=== PATIENT | male | born 1990 | race Two or more races ===

== ENCOUNTER 2018-06-01 13:08 | Emergency (ER) | payer SELFPAY ==
[2018-06-01] MEDS ORDERED: ONDANSETRON HCL INJ/PF 4 MG/2 ML SDV IV ONE (13:25)
[2018-06-01] MEDS ORDERED: NORMAL SALINE 1000 ML 1,000 ML IV ONE (13:25)
--- NOTE | 2018-06-01 14:04 | ER Document Report ---
ED General - General Chief Complaint: Nausea Stated Complaint: FLU SYMPTOMS Time Seen by Provider: 06/01/18 13:23 - HPI Notes: Patient is a 27-year-old male that presents to the emergency department for chief complaint of sinus congestion, cough, vomiting. Patient reports 6 days of sinus pressure and congestion. He states he is having a lot of postnasal drip and coughing. He has had a few episodes of posttussive emesis yesterday and today. Today he started to feel like he was swaying while sitting still. He denies history of vertigo in the past. He has tried taking [place] with no relief of his symptoms. He denies any fevers or chills. He has not received an influenza vaccine. He denies any abdominal pain, shortness of breath, chest pain, and diarrhea. Past Medical History: Negative Past Surgical History: Negative Social History: Daily tobacco. Occasional marijuana. Occasional alcohol. Family History: Reviewed and noncontributory for presenting illness Allergies: Reviewed, see documented allergy list. REVIEW OF SYSTEMS: CONSTITUTIONAL : No fever No chills No diaphoresis No recent illness EENT: No vision changes congestion No sore throat CARDIOVASCULAR: No chest pain No palpitations RESPIRATORY: No shortness of breath cough No difficulty breathing GASTROINTESTINAL: No abdominal pain No nausea vomiting No diarrhea GENITOURINARY: No dysuria No hematuria No difficulty urinating MUSCULOSKELETAL: No back pain No leg pain No arm pain SKIN: No rashes No lesions LYMPHATIC: No swollen, enlarged glands. NEUROLOGICAL: Vertigo No lightheadedness No headache No weakness No paresthesias PSYCHIATRIC: No anxiety No depression PHYSICAL EXAMINATION: Vital signs reviewed, nursing noted reviewed. GENERAL: Well-appearing, well-nourished and in no acute distress. HEAD: Atraumatic, normocephalic. EYES: Eyes appear normal, extraocular movements intact, sclera anicteric, conjunctiva are normal. ENT: Bilateral nasal mucosal edema and rhinorrhea, bilateral maxillary and frontal sinus tenderness to percussion. Bilateral middle ear effusion. Oropharynx clear without exudates. Moist mucous membranes. NECK: Normal range of motion, supple without lymphadenopathy LUNGS: Breath sounds clear to auscultation bilaterally and equal. No wheezes rales or rhonchi. HEART: Regular rate and rhythm without murmurs ABDOMEN: Soft, nontender, normoactive bowel sounds. No rebound, guarding, or rigidity. No masses appreciated. EXTREMITIES: Nontender, good range of motion, no pitting or edema. NEUROLOGICAL: No focal neurological deficits. Moves all extremities spontaneously Motor and sensory grossly intact on exam. PSYCH: Normal mood, normal affect. SKIN: Warm, Dry, normal turgor, no rashes or lesions noted on exposed skin - Related Data Allergies/Adverse Reactions: No Known Allergies Allergy (Unverified 06/01/18 13:09) Past Medical History - Social History Smoking Status: Current Every Day Smoker Family History: Reviewed & Not Pertinent Review of Systems - Review of Systems Notes: Dictated Physical Exam - Vital signs Vitals: Temp Pulse Resp BP Pulse Ox 98.0 F 58 L 14 128/77 H 98 06/01/18 13:15 06/01/18 13:15 06/01/18 13:15 06/01/18 13:15 06/01/18 13:15 - Notes Notes: Dictated Course - Re-evaluation Re-evalutation: 06/01/18 14:01 Vitals reviewed. Nursing notes reviewed. Patient afebrile and nontoxic- appearing. He denies feeling nauseated currently and states he only has vomited after coughing, intra-abdominal process not currently suspected. He was given meclizine for his vertigo sensation. Patient has had 6 days of significant sinus congestion which is now causing him to be vertiginous. He was counseled on smoking cessation. He will be given an antibiotic for his sinusitis. He will be given a prescription for meclizine for his vertigo. He will be discharged home in stable condition with primary care follow-up. Patient in agreement with this plan and stable at discharge. - Vital Signs Vital signs: Temp Pulse Resp BP Pulse Ox 98.0 F 58 L 14 128/77 H 98 06/01/18 13:15 06/01/18 13:15 06/01/18 13:15 06/01/18 13:15 06/01/18 13:15 Discharge - Discharge Clinical Impression: Vertigo Sinusitis Qualifiers: Sinusitis location: other Chronicity: acute Recurrence: not specified as recurrent Qualified Code(s): J01.80 - Other acute sinusitis Condition: Stable Disposition: HOME, SELF-CARE Instructions: Sinusitis ([facility]), Vertigo ([facility]), Family Physicians / Practices Additional Instructions: Please return to the emergency department if you have any worsening, or concern of your symptoms. Please return to the emergency department if you develop chest pain, difficulty breathing, severe abdominal pain, or ongoing vomiting. Please follow-up with your primary care physician in 2-3 days and any other recommended physicians. If prescribed, take all medications as directed. If you have any questions or concerns do not hesitate to return the emergency department for evaluation. [] Prescriptions: Amox Tr/Potassium Clavulanate [Augmentin 875-125 Tablet] 1 tab PO BID 10 Days tablet Meclizine HCl [Antivert 25 mg Tablet] 25 mg PO TID PRN #20 tablet PRN Reason: Dizziness Forms: Smoking Cessation Education
[2018-06-01] MEDS ORDERED: MECLIZINE HCL 25 MG TABLET PO ONE (14:05)
[2018-06-01 14:25] VITALS: BP 121/69
== END 2018-06-01 14:27 | disposition home or self-care (01) ==
LOC: ER 13:08
DX: J01.80 Other acute sinusitis (principal); R42 Dizziness and giddiness; R09.81 Nasal congestion; R05 Cough; R11.11 Vomiting without nausea; R09.82 Postnasal drip; J34.89 Other specified disorders of nose and nasal sinuses; F17.200 Nicotine dependence, unspecified, uncomplicated
CPT/HCPCS: 99283